=== PATIENT | female | born 1995 | race Caucasian/White ===

== ENCOUNTER 2018-03-15 13:54 | Emergency (ER) | payer BC, OTHER ==
--- NOTE | 2018-03-15 14:03 | ED Physician Documentation ---
PD HPI LOWER EXT INJURY - Stated complaint Stated Complaint: ANKLE PAIN - Chief complaint Chief Complaint: Ext Problem - History obtained from History obtained from: Patient - History of Present Illness PD HPI LOW EXT INJURY LOCATION: Right, Ankle Type of injury: Twist (fell going down stairs, with twisting of right ankle. Pain not too bad initially, but got more painful over the next 1-2 hours. Barely able to weight bear now.) Timing - onset: Today (this morning) Timing - details: Abrupt onset, Still present Improved by: Rest Worsened by: Moving, Palpating, Other (walking/weight bearing) Associated symptoms: Swelling. No: Weakness, Numbness Similar symptoms before: Has not had sx before Recently seen: Not recently seen Review of Systems Skin: denies: Abrasion (s), Laceration (s) Neurologic: denies: Focal weakness, Numbness PD PAST MEDICAL HISTORY - Past Medical History Neuro: None Musculoskeletal: None - Present Medications Home Medications: Ambulatory Orders Medication Instructions Recorded Confirmed Etonogestrel [Nexplanon] 03/15/18 - Allergies Allergies/Adverse Reactions: Allergies Allergy/AdvReac Type Severity Reaction Status Date / Time fluoxetine AdvReac Hallucinati Verified 03/15/18 14:01 ons PD ED PE NORMAL - Vitals Vital signs reviewed: Yes - General General: Alert and oriented X 3, No acute distress, Well developed/nourished - Extremities Extremities: Other (right ankle with tenderness and some swelling anteriolateral ankle. Not tender at malleoli directly. Proximal filtering machine tender anterolateral area. No deformity. Achilles not tender. No tenderness in proximal lower leg. ) Results - Vitals Vitals: Vital Signs - 24 hr 03/15/18 13:59 Temperature 36.7 C Heart Rate 98 Respiratory 18 Rate Blood Pressure 138/76 H O2 Saturation 100 Oxygen O2 Source Room air - Rads (name of study) right ankle Radiology: Prelim report reviewed, EMP read contemporaneously (no fractures) PD MEDICAL DECISION MAKING - ED course Complexity details: reviewed results, considered differential, d/w patient Departure - Departure Disposition: 01 Home, Self Care Clinical Impression: Right ankle sprain Qualifiers: Encounter type: initial encounter Involved ligament of ankle: unspecified ligament Qualified Code(s): S93.401A - Sprain of unspecified ligament of right ankle, initial encounter Condition: Stable Record reviewed to determine appropriate education?: Yes Instructions: ED Sprain Ankle W X Ray Comments: Use ankle support or when up and around for the next 2-3 weeks until fully healed. Crutches initially due to the pain of walking and progress weightbearing and activity as able. Hopefully this will improve over the next several days to a week. He will want to continue the ankle brace however to support the ligaments until fully healed. Tylenol or ibuprofen or Aleve if needed for pains. Ice elevate and rest the ankle often today and tomorrow. Recheck if not reasonably better over the next week or so. Discharge Date/Time: 03/15/18 15:04
[2018-03-15 14:05] VITALS: BP 138/76
--- NOTE | 2018-03-15 15:00 | XRAY Report ---
Reason: ANKLE INJURY Procedure Date: 03/15/2018 Accession Number: [id number] / [id number] Procedure: XR - Ankle 3 View RT CPT Code: FULL RESULT: EXAM: RIGHT ANKLE RADIOGRAPHY EXAM DATE: 03/15/2018 02:27 PM. CLINICAL HISTORY: ANKLE INJURY. COMPARISON: None. TECHNIQUE: 3 views. FINDINGS: Bones: No acute fracture. Joints: No dislocation or subluxation. Soft Tissues: Possible mild soft tissue swelling over the medial malleolus. IMPRESSION: 1. No acute fracture or malalignment. 2. Possible mild soft tissue swelling over the medial malleolus. [facility]
== END 2018-03-15 15:04 | disposition home or self-care (01) ==
LOC: ED 13:54
DX: S93.401A Sprain of unspecified ligament of right ankle, initial encounter (principal); W10.9XXA Fall (on) (from) unspecified stairs and steps, initial encounter; X50.9XXA Other and unspecified overexertion or strenuous movements or postures, initial encounter
CPT/HCPCS: 99283